=== PATIENT | female | born 1960 | race Caucasian/White ===

== ENCOUNTER → 2021-03-29 | Outpatient (CLI) | payer BC ==
[~2021-03-29] MED LIST: GADOTERATE 7.5 MMOL/15ML VIAL. IVP ONE; HYDROmorphone 2 MG/ML VIAL IVP PRN; IV RINGERS,LACTATED 1000ML 1,000 ML IV SCH; LIDOCAINE 2% 100 MG/5 ML SYRINGE. ONE; MIDAZOLAM HCL/PF 2 MG/2 ML VIAL. ONE; MORPHINE SULFATE 2 MG/ML INJ. IVP PRN; PROCHLORPERAZINE 10 MG/2 ML VIAL. IVP PRN; PROPOFOL 10 MG/ML (20ML) VIAL. IV ONE; fentaNYL PF VIAL 100 MCG/2 ML VIAL IVP PRN
[2021-03-29 10:55] VITALS: BP 161/69
--- NOTE | 2021-03-29 13:01 | RAD ---
MRI FACE/NECK WITHOUT AND WITH IV CONTRAST- History: Reason: LESION OR MASS OF PARANASL SINUSES / Spl. Instructions: 15 ML CLARISCAN , EXAM W/SED ATION / History: Technique: Multiplanar multisequence MRI of the maxillofacial region without and with contrast. Comparison: None. Findings: Several sequences are motion degraded. Large heterogeneous enhancing mass centered within the left posterior maxillary sinus. The mass exten ds through the wall and into the adjacent hat cutter space as well as anteriorly within the maxilla j ust anterior to the mandible. There is a component of the mass in the left maxillary sinus. The mass measures approximately 2.9 cm anterior posterior by 2.5 cm transverse by 4.7 cm craniocaudal. No significant paranasal sinus disease. Mastoid air cells are clear. Imaged orbits and retro-orbital space are unremarkable. Imaged intracranial contents are unremarkable. Multilevel partially imaged cervical spondylosis. Impression: 1. Large heterogeneously enhancing mass centered within the left posterior maxillary sinus extending into the adjacent hat cutter space and anteriorly maxillary soft tissues, concerning for malignancy. Recommend biopsy. CT can also better delineated bone detail if not already performed. Electronically signed by: Pipe Addison DO (03/29/2021 12:58 PM) [id number]
== END ==
LOC: MRI 11:04
PROVIDERS: ATTEND Student in an Organized Health Care Education/Training Program
DX: J34.89 Other specified disorders of nose and nasal sinuses (principal); M47.812 Spondylosis without myelopathy or radiculopathy, cervical region
CPT/HCPCS: 70543; A9575; J2250; J2704; J3490